=== PATIENT | male | born 1975 ===

== ENCOUNTER 2016-12-22 04:55 | Emergency (ER) | payer OTHER ==
[2016-12-22 05:11] VITALS: RESP 18; O2SAT 98
--- NOTE | 2016-12-22 05:40 | C.PDOC ---
History Of Present Illness 41 year old male presents to the ED for evaluation of skin and throat itchiness beginning earlier today. Patient states his sister is a hoarder with a lot cats that have flees. He began to spray chemicals to disinfect and felt uncomfortable and had throat itching. Patient denies fever, nausea, vomiting, chest pain, or shortness of breath. Time Seen by Provider: 12/22/16 05:13 Chief Complaint (Nursing): Medical Clearance History Per: Patient History/Exam Limitations: no limitations Onset/Duration Of Symptoms: Hrs Current Symptoms Are (Timing): Still Present Recent travel outside of the [place]: No Past Medical History Reviewed: Historical Data, Nursing Documentation, Vital Signs Vital Signs: Last Vital Signs Temp 98.2 F 12/22/16 05:43 Pulse 78 12/22/16 05:43 Resp 18 12/22/16 05:43 BP 124/72 12/22/16 05:43 Pulse Ox 98 12/22/16 06:12 Family History: States: Unknown Family Hx - Social History Hx Alcohol Use: No Hx Substance Use: No - Immunization History Hx Tetanus Toxoid Vaccination: No Hx Influenza Vaccination: No Hx Pneumococcal Vaccination: No Review Of Systems Constitutional: Negative for: Fever, Chills ENT: Positive for: Other (throat itchng ) Cardiovascular: Negative for: Chest Pain, Palpitations Respiratory: Negative for: Cough, Shortness of Breath Gastrointestinal: Negative for: Nausea, Vomiting Skin: Negative for: Rash Physical Exam - Physical Exam Appears: Non-toxic, No Acute Distress Skin: Warm, Dry, No Rash Head: Atraumatic, Normacephalic Eye(s): bilateral: Normal Inspection, PERRL, EOMI Ear(s): Bilateral: Normal Nose: Normal, No Discharge Oral Mucosa: Moist Throat: Normal, No Erythema, No Exudate Neck: Normal ROM, Supple Chest: Symmetrical, No Deformity Cardiovascular: Rhythm Regular, No Murmur Respiratory: Normal Breath Sounds, No Rales, No Rhonchi, No Wheezing Neurological/Psych: Oriented x3 ED Course And Treatment O2 Sat by Pulse Oximetry: 98 (RA) Disposition - Disposition Referrals: Non [facility] Provider, [Primary Care Provider] - Disposition: HOME/ ROUTINE Disposition Time: 05:35 Condition: STABLE Additional Instructions: Please follow up in clinic Increase PO fluids Return to ER if symptoms worsen Forms: [employer] (Icelandic), General Discharge Instructions - Clinical Impression Clinical Impression: Medical assessment - 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 - Scribe Statement The provider has reviewed the documentation as recorded by the Scribamber Fuentes All medical record entries made by the Emmaibamber were at my direction and personally dictated by me. I have reviewed the chart and agree that the record accurately reflects my personal performance of the history, physical exam, medical decision making, and the department course for this patient. I have also personally directed, reviewed, and agree with the discharge instructions and disposition.
[2016-12-22 05:45] VITALS: BP 124/72; PULSE 78; TEMP 98.2
== END 2016-12-22 05:41 | disposition home or self-care (01) ==
LOC: C.ER 04:55 → SUPCPDRO 04:55 → C.ER 05:41
DX: Z00.00 Encounter for general adult medical examination without abnormal findings (principal)

== ENCOUNTER 2016-12-25 14:39 | Emergency (ER) | payer OTHER ==
[2016-12-25 14:47] VITALS: BP 109/65; PULSE 61; RESP 18; TEMP 97.9; O2SAT 99
--- NOTE | 2016-12-25 15:24 | C.PDOC ---
History Of Present Illness 41 year old male presents to the ED for evaluation of an itchy rash to his body which he noted for the past week. Patient suspected he had lice and recently shaved his head. Patient notes notes itchiness to his body, lower abdominal region, hand and lower legs. Patient otherwise denies fever, chills, throat pain , swelling sensation to throat, shortness of breath, wheezing, contact with known allergens, or new foods/detergents/soaps. Time Seen by Provider: 12/25/16 15:03 Chief Complaint (Nursing): Abnormal Skin Integrity History Per: Patient History/Exam Limitations: no limitations Onset/Duration Of Symptoms: Days (1 week) Current Symptoms Are (Timing): Still Present Quality Of Symptoms: Itching Additional History Per: Patient Past Medical History Reviewed: Historical Data, Nursing Documentation, Vital Signs Vital Signs: Last Vital Signs Temp 97.9 F 12/25/16 14:45 Pulse 61 12/25/16 14:45 Resp 18 12/25/16 14:45 BP 109/65 12/25/16 14:45 Pulse Ox 99 12/25/16 16:17 - Medical History PMH: No Chronic Diseases Surgical History: No Surg Hx Family History: States: Unknown Family Hx - Social History Hx Alcohol Use: No Hx Substance Use: No - Immunization History Hx Tetanus Toxoid Vaccination: No Hx Influenza Vaccination: No Hx Pneumococcal Vaccination: No Review Of Systems Constitutional: Negative for: Fever, Chills ENT: Negative for: Throat Pain, Throat Swelling Respiratory: Negative for: Cough, Shortness of Breath, Wheezing Skin: Positive for: Rash (itchy to lower abdominal area, hands and lower legs ) Physical Exam - Physical Exam Appears: Well, Non-toxic, No Acute Distress Skin: Normal Color, Warm, Dry, Rash (scattered macular erythematous rash to lower abdominal folds, hands between fingers, scattered to lower legs. No cellulitis.) Eye(s): bilateral: PERRL Nose: Normal, No Discharge Oral Mucosa: Moist, No Drooling Throat: No Erythema, Other (uvulamidline, no edema.) Neck: Supple Back: No CVA Tenderness Extremity: Normal ROM, No Deformity, No Swelling Neurological/Psych: Oriented x3, Normal Speech ED Course And Treatment O2 Sat by Pulse Oximetry: 99 (on RA) Pulse Ox Interpretation: Normal Progress Note: On re-eavluation, pt is afebrile, hemodynamicaly stable. NOn- toxic. PUlseOx 99% RA. ENT: no acute finidngs. Lungs: CTA B/L, BS equal B/L. Abd: benign. SKin: exam c/w scattered macular rash to body, no cellulitis. Pt has clinical findings c/w rash r/o scabies. Pt advised. ref. to F/u with PMD and Derm in 2-3 days for re-evaluation. Return ifa ny new changes. Disposition Counseled Patient/Family Regarding: Diagnosis, Need For Followup, Rx Given - Disposition Referrals: [facility] [Outside] Disposition: HOME/ ROUTINE Disposition Time: 15:21 Condition: STABLE Additional Instructions: Use medication as prescribed Clean all clothes, common places Follow up with PMD as need for further evaluation and treatment. 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 - Scribe Statement The provider has reviewed the documentation as recorded by the Scribe (Yelena Wright) All medical record entries made by the Scribe were at my direction and personally dictated by me. I have reviewed the chart and agree that the record accurately reflects my personal performance of the history, physical exam, medical decision making, and the department course for this patient. I have also personally directed, reviewed, and agree with the discharge instructions and disposition.
== END 2016-12-25 16:03 | disposition home or self-care (01) ==
LOC: C.ER 14:39
DX: B86 Scabies (principal)